=== PATIENT | male | born 1995 | race Native Hawaiian/Other Pacific Islander ===

== ENCOUNTER 2017-09-24 00:27 | Emergency (ER) | payer OTHER ==
--- NOTE | 2017-09-24 02:13 | ED PDOC ---
HPI: Psych/Substance Abuse Time Seen by Provider: 09/24/17 00:42 Chief Complaint (Nursing): Psychiatric Evaluation Chief Complaint (Provider): hearing voices Additional Complaint(s): 22yo M in ER with friend with auditory hallucinations and thoughts of SI- according to pt-he is very concerned about not being able to find a job post graduate school concerned about what his father in [place] may think. According to friend. pt has been saying odd things to all around him stating that Russians , etc are running after him-exhibiting signs of paranoia. faired states that pt parents are aware and have purchased a ticket for his return to [facility] for Monday. Pt without hx of mental health illness. no drug hx other than majuriina. Past Medical History Reviewed: Historical Data, Nursing Documentation, Vital Signs Vital Signs: Last Vital Signs Temp 98.2 F 09/24/17 00:47 Pulse 88 09/24/17 00:47 Resp 18 09/24/17 00:47 BP 139/79 09/24/17 00:47 Pulse Ox 98 09/24/17 00:47 - Medical History PMH: No Chronic Diseases - Family History Family History: States: No Known Family Hx - Allergies Allergies/Adverse Reactions: Allergies Allergy/AdvReac Type Severity Reaction Status Date / Time No Known Allergies Allergy Verified 09/24/17 00:56 Review of Systems ROS Statement: Except As Marked, All Systems Reviewed And Found Negative Psych: Positive for: Psychosis Physical Exam - Reviewed Nursing Documentation Reviewed: Yes Vital Signs Reviewed: Yes - Physical Exam Appears: Positive for: Well, Non-toxic, No Acute Distress Head Exam: Positive for: ATRAUMATIC, NORMAL INSPECTION, NORMOCEPHALIC Skin: Positive for: Normal Color, Warm, DRY Eye Exam: Positive for: EOMI, Normal appearance, PERRL ENT: Positive for: Normal ENT Inspection Cardiovascular/Chest: Positive for: Regular Rate, Rhythm Respiratory: Positive for: CNT, Normal Breath Sounds Neurologic/Psych: Positive for: Alert, insurance claims processor II-XII (intact), Oriented, Cerebellar Tests (intact), Gait (stable). Negative for: Motor/Sensory Deficits - Laboratory Results Result Diagrams: 09/24/17 02:10 09/24/17 02:10 - ECG O2 Sat by Pulse Oximetry: 98 - Progress ED Course And Treament: due to new onsent presentation will CT head. Orders Category Date Time Status HEAD W/O CONTRAST [CT] Stat CT 09/24/17 02:05 Ordered ALCOHOL SERUM Stat Chem 09/24/17 02:04 Ordered COMP METABOLIC PANEL Stat Chem 09/24/17 02:04 Ordered DRUG SCREEN, URINE Stat Chem 09/24/17 02:04 Ordered Crisis Evaluation As Ordered Cons 09/24/17 01:54 Ordered CHEST TWO VIEWS (PA/LAT) [RAD] Stat Exams 09/24/17 01:54 Ordered CBC (WITH DIFFERENTIAL) Stat FRANCIS 09/24/17 02:04 Ordered URINALYSIS Stat URINALYSIS 09/24/17 02:04 Ordered Medical Decision Making Medical Decision Making: ct head: FINDINGS: Brain: Unremarkable. No hemorrhage. No significant white matter disease. No edema. Ventricles: Unremarkable. No ventriculomegaly. Bones/joints: Unremarkable. No acute fracture. Soft tissues: Unremarkable. Sinuses: There is mucosal thickening in the frontal sinus. Mastoid air cells: Unremarkable as visualized. No mastoid effusion. IMPRESSION: No acute intracranial pathology. Thank you for allowing us to participate in the care of your patient. Dictated and Authenticated by: Arsen Romero MD 09/24/2017 2:53 AM Eastern Time ([place] & [place]) Pt will be admitted for psychosis under MD Rossy Disposition - Clinical Impression Clinical Impression: Psychosis - Patient ED Disposition Is Patient to be Admitted: Yes - Disposition Disposition Time: 03:00 Condition: STABLE - Pt Status Changed To: Hospital Disposition Of: Inpatient - Admit Certification Admit to Inpatient:: After my assessment, the patient will require hospitalization for at least two midnights. This is because of the severity of symptoms shown, intensity of services needed, and/or the medical risk in this patient being treated as an outpatient.
[2017-09-24 02:20] LABS: BASO % 0.1 % (0.0-2.0); EOS # 0.1 K/uL (0.0-0.7); EOS % 1.1 % (0.0-4.0); HEMATOCRIT 46.9 % (35.0-51.0); LYMPH # 2.4 K/uL (1.0-4.3); LYMPH % 34.3 % (20.0-40.0); MEAN CELL VOLUME 88.8 fl (80.0-94.0); MEAN CORPUSCULAR HEMOGLOBIN 29.8 pg (27.0-31.0); MEAN CORPUSCULAR HGB CONC 33.5 g/dL (33.0-37.0); MEAN PLATELET VOLUME 9.3 fl (7.2-11.7); MONO # 0.8 K/uL (0.0-0.8); MONO % 11.1 % (0.0-10.0); NEUT # 3.7 K/uL (1.8-7.0); NEUT % 53.4 % (50.0-75.0); NRBC % 0.1 % (0.0-0.0); RED CELL DISTRIBUTION WIDTH 13.6 % (11.5-14.5); WHITE BLOOD COUNT 6.9 K/uL (4.8-10.8)
[2017-09-24 02:29] LABS: RBC URINE 5 /hpf (0-3); URINE BACTERIA OCC (<OCC); URINE BILIRUBIN NEGATIVE (NEGATIVE); URINE BLOOD NEGATIVE (NEGATIVE); URINE CALCIUM OXALATE CRYSTALS OCC /hpf (<OCC); URINE COLOR YELLOW (YELLOW); URINE GLUCOSE (UA) NEG (Normal); URINE KETONE NEGATIVE (NEGATIVE); URINE LEUKOCYTE ESTERASE NEG Leu/uL (Negative); URINE PROTEIN 30 mg/dL (NEGATIVE); URINE UROBILINOGEN 0.2-1.0 mg/dL (0.2-1.0); WBC URINE 2 /hpf (0-5)
[2017-09-24 02:30] LABS: ALB/GLOB RATIO 1.7 (1.0-2.1); ALCOHOL SERUM < 10 mg/dl (0-10); ALKALINE PHOSPHATASE 75 U/L (38-126); ALT/SGPT 36 U/L (21-72); AST/SGOT 23 U/L (17-59); BILIRUBIN,TOTAL 0.6 mg/dl (0.2-1.3); BLOOD UREA NITROGEN 15 mg/dl (9-20); CALCIUM 9.7 mg/dL (8.4-10.2); CARBON DIOXIDE 23 mmol/L (22-30); CHLORIDE 103 mmol/L (98-107); GFR AFRICAN-AMERICAN > 60; GLUCOSE,RANDOM 100 mg/dL (75-110); POTASSIUM 4.1 MMOL/L (3.6-5.0); SODIUM 138 mmol/l (132-148); TOTAL PROTEIN 7.8 G/DL (6.3-8.2)
--- NOTE | 2017-09-24 07:09 | ED PDOC ---
- Laboratory Results Result Diagrams: 09/24/17 02:10 09/24/17 02:10 - ECG O2 Sat by Pulse Oximetry: 98 Medical Decision Making Medical Decision Making: Time: 06:00 --Patient signed over to me by Mima Coffey PA-C Time: 07 Patient to be signed out to Dr. León pending Disposition - Clinical Impression Clinical Impression: Psychosis - Disposition Disposition: Transfer of Care Disposition Time: 07:00 Condition: STABLE Patient Signed Over To: Sevrando Solo
--- NOTE | 2017-09-24 07:10 | ED PDOC ---
- Laboratory Results Result Diagrams: 09/24/17 02:10 09/24/17 02:10 - ECG O2 Sat by Pulse Oximetry: 98 Medical Decision Making Medical Decision Making: Time: 07:00 --Transfer of care endorsed by me to Dr. León Disposition - Clinical Impression Clinical Impression: Psychosis - Disposition Disposition: Transfer of Care Condition: STABLE Patient Signed Over To: Trisha León
--- NOTE | 2017-09-24 07:27 | ED PDOC ---
- Laboratory Results Result Diagrams: 09/24/17 02:10 09/24/17 02:10 - ECG O2 Sat by Pulse Oximetry: 98 (RA) Pulse Ox Interpretation: Normal Medical Decision Making Medical Decision Making: Receiving sign out: Patient signed out to me by Mima Coffey PA-C at 0600 pending [facility] [place]. Scribe Attestation: Documented by Latonya Hastings acting as a scribe for Servando Solo MD. Provider Attestation: All medical record entries made by the Scribe were at my direction and personally dictated by me. I have reviewed the chart and agree that the record accurately reflects my personal performance of the history, physical exam, medical decision making, and the department course for this patient. I have also personally directed, reviewed, and agree with the discharge instructions and disposition. Disposition - Clinical Impression Clinical Impression: Psychosis - POA Present On Arrival: None - Disposition Disposition: Transfer of Care Disposition Time: 07:00 Condition: STABLE Patient Signed Over To: Trisha León Handoff Comments: [facility] [place] Progress Note - Review of Symptoms Events since last encounter: Time: 0700 Patient to be signed out to Dr. León pending [facility] [place]
--- NOTE | 2017-09-24 07:37 | ED PDOC ---
- Laboratory Results Result Diagrams: 09/24/17 02:10 09/24/17 02:10 - ECG O2 Sat by Pulse Oximetry: 98 (RA) Pulse Ox Interpretation: Normal Medical Decision Making Medical Decision Making: Receiving sign out: Patient signed out to me by Dr. Solo at 0700 pending [facility] screen. Scribe Attestation: Documented by Candelaria Mae acting as a scribe for Trisha León MD. Provider Attestation: All medical record entries made by the Scribe were at my direction and personally dictated by me. I have reviewed the chart and agree that the record accurately reflects my personal performance of the history, physical exam, medical decision making, and the department course for this patient. I have also personally directed, reviewed, and agree with the discharge instructions and disposition. 13.30 patient becoming agitated again. He has difficulty following directions and prompting to return to bed. he is pacing. Patient awaiting [facility] and Dr. Patiño for evaluation. Will medicate. Disposition Doctor Will See Patient In The: Hospital - Clinical Impression Clinical Impression: Psychosis - POA Present On Arrival: None - Disposition Disposition: Transfer of Care Disposition Time: 14:45 Condition: STABLE Patient Signed Over To: Mal Antony
--- NOTE | 2017-09-24 09:47 | CT ---
PROCEDURE: CT HEAD WITHOUT CONTRAST. HISTORY: new psyhosis COMPARISON: None available. TECHNIQUE: Axial computed tomography images were obtained through the head/brain without intravenous contrast. Radiation dose: Total exam DLP = mGy-cm. This CT exam was performed using one or more of the following dose reduction techniques: Automated exposure control, adjustment of the mA and/or kV according to patient size, and/or use of iterative reconstruction technique. FINDINGS: HEMORRHAGE: No intracranial hemorrhage. BRAIN: No mass effect or edema. No atrophy or chronic microvascular ischemic changes. VENTRICLES: Unremarkable. No hydrocephalus. CALVARIUM: Unremarkable. PARANASAL SINUSES: Unremarkable as visualized. No significant inflammatory changes. MASTOID AIR CELLS: Unremarkable as visualized. No inflammatory changes. OTHER FINDINGS: None. IMPRESSION: Normal CT of the Head.
--- NOTE | 2017-09-24 11:35 | RAD ---
HISTORY: medical exam COMPARISON: No prior. TECHNIQUE: Chest PA and lateral FINDINGS: LUNGS: No active pulmonary disease. PLEURA: No significant pleural effusion identified. No pneumothorax apparent. CARDIOVASCULAR: Normal. OSSEOUS STRUCTURES: No significant abnormalities. VISUALIZED UPPER ABDOMEN: Normal. OTHER FINDINGS: None. IMPRESSION: No active disease.
--- NOTE | 2017-09-24 15:35 | ED PDOC ---
- Laboratory Results Result Diagrams: 09/24/17 02:10 09/24/17 02:10 - ECG O2 Sat by Pulse Oximetry: 98 (RA) Pulse Ox Interpretation: Normal - Progress ED Course And Treament: 2333: Stable. Dr. Solo to take over care. [facility] accepted, pending bed. Medical Decision Making Medical Decision Making: Receiving sign out: Patient signed out to me by Dr. León at 1500 pending [facility] screen. Scribe Attestation: Documented by Candelaria Mae acting as a scribe for Mal Antony MD. Provider Attestation: All medical record entries made by the Scribe were at my direction and personally dictated by me. I have reviewed the chart and agree that the record accurately reflects my personal performance of the history, physical exam, medical decision making, and the department course for this patient. I have also personally directed, reviewed, and agree with the discharge instructions and disposition. Disposition - Clinical Impression Clinical Impression: Psychosis - POA Present On Arrival: None - Disposition Disposition: Transfer of Care Disposition Time: 23:36 Condition: STABLE Patient Signed Over To: Servando Solo Progress Note - Review of Symptoms Events since last encounter: Time: 1544 Due to risk of harm to self and staff, patient to be placed in 4-point restraints. Haldol 5mg IM ordered as well.
--- NOTE | 2017-09-24 16:47 | CP.PCM.CON ---
History of Present Illness - History of Present Illness History of Present Illness: This is a 22 [place] who has been brought to ER because pt has been increasingly depressed because he has not been able to get a job after graduation from [employer] and felt embarrassed that how his parents would feel and pt has been delusional and paranoid that russians are coming after him.pt is also hallucinating and has refused voluntary inpt psych admission.pt is maintained on 1;1 observation. Past Patient History - Past Social History Smoking Status: Light Smoker < 10 Cigarettes Daily - CARDIAC Hx Cardiac Disorders: No Hx Hypertension: No - PULMONARY Hx Tuberculosis: No - NEUROLOGICAL HX Cerebrovascular Accident: No Hx Seizures: No - HEMATOLOGICAL/ONCOLOGICAL Hx Cancer: No Hx Human Immunodeficiency Virus (HIV): No - GENITOURINARY/GYNECOLOGICAL Hx Sexually Transmitted Disorders: No - PSYCHIATRIC Hx Substance Use: Yes - SURGICAL HISTORY Hx Surgeries: Yes Hx Eye Surgery: Yes (Lasik) - ANESTHESIA Hx Anesthesia: Yes Hx Anesthesia Reactions: No Meds Allergies/Adverse Reactions: Allergies Allergy/AdvReac Type Severity Reaction Status Date / Time No Known Allergies Allergy Verified 09/24/17 00:56 Results - Vital Signs Recent Vital Signs: Last Vital Signs Temp 96 F L 09/24/17 16:00 Pulse 90 09/24/17 16:34 Resp 18 09/24/17 16:34 BP 110/73 09/24/17 16:34 Pulse Ox 97 09/24/17 16:34 - Labs Result Diagrams: 09/24/17 02:10 09/24/17 02:10 Labs: Laboratory Results - last 24 hr 09/24/17 09/24/17 09/24/17 02:10 02:10 02:10 WBC 6.9 RBC 5.29 Hgb 15.7 Hct 46.9 MCV 88.8 MCH 29.8 MCHC 33.5 RDW 13.6 Plt Count 199 MPV 9.3 Neut % (Auto) 53.4 Lymph % (Auto) 34.3 [place] % (Auto) 11.1 H Eos % (Auto) 1.1 Baso % (Auto) 0.1 Neut # 3.7 Lymph # 2.4 [place] # 0.8 Eos # 0.1 Baso # 0.0 Sodium 138 Potassium 4.1 Chloride 103 Carbon Dioxide 23 Anion Gap 16 BUN 15 Creatinine 0.9 Est GFR ( Amer) > 60 Est GFR (Non-Af Amer) > 60 Random Glucose 100 Calcium 9.7 Total Bilirubin 0.6 AST 23 ALT 36 Alkaline Phosphatase 75 Total Protein 7.8 Albumin 4.9 Globulin 2.9 Albumin/Globulin Ratio 1.7 Urine Color Urine Clarity Urine pH Ur Specific Wiley Urine Protein Urine Glucose (UA) Urine Ketones Urine Blood Urine Nitrate Urine Bilirubin Urine Urobilinogen Ur Leukocyte Esterase Urine RBC (Auto) Urine Microscopic WBC Ur Squamous Epith Cells Calcium Oxalate Crystal Urine Bacteria Urine Opiates Screen Negative Urine Methadone Screen Negative Ur Barbiturates Screen Negative Ur Phencyclidine Scrn Negative Ur Amphetamines Screen Negative U Benzodiazepines Scrn Negative U Oth Cocaine Metabols Negative U Cannabinoids Screen Positive H Alcohol, Quantitative < 10 09/24/17 02:10 WBC RBC Hgb Hct MCV MCH MCHC RDW Plt Count MPV Neut % (Auto) Lymph % (Auto) [place] % (Auto) Eos % (Auto) Baso % (Auto) Neut # Lymph # [place] # Eos # Baso # Sodium Potassium Chloride Carbon Dioxide Anion Gap BUN Creatinine Est GFR ( Amer) Est GFR (Non-Af Amer) Random Glucose Calcium Total Bilirubin AST ALT Alkaline Phosphatase Total Protein Albumin Globulin Albumin/Globulin Ratio Urine Color Yellow Urine Clarity Cloudy Urine pH 5.0 Ur Specific Wiley 1.031 H Urine Protein 30 Urine Glucose (UA) Neg Urine Ketones Negative Urine Blood Negative Urine Nitrate Negative Urine Bilirubin Negative Urine Urobilinogen 0.2-1.0 Ur Leukocyte Esterase Neg Urine RBC (Auto) 5 H Urine Microscopic WBC 2 Ur Squamous Epith Cells 1 Calcium Oxalate Crystal Occ H Urine Bacteria Occ H Urine Opiates Screen Urine Methadone Screen Ur Barbiturates Screen Ur Phencyclidine Scrn Ur Amphetamines Screen U Benzodiazepines Scrn U Oth Cocaine Metabols U Cannabinoids Screen Alcohol, Quantitative
--- NOTE | 2017-09-25 06:31 | ED PDOC ---
- Laboratory Results Result Diagrams: 09/24/17 02:10 09/24/17 02:10 - ECG O2 Sat by Pulse Oximetry: 98 (RA) Medical Decision Making Medical Decision Makin Patient signed out to me from Dr. Antony pending [facility] bed availability. 0700 Patient will be signed out to Dr. Castillo from me pending [facility] bed availability. PT stable, asking to use cell phone to call juan ramon. Scribe Attestation: Documented by Katy Swan acting as a scribe for Servando Solo MD. Scribe Attestation: All medical record entries made by the Scribe were at my direction and personally dictated by me. I have reviewed the chart and agree that the record accurately reflects my personal performance of the history, physical exam, medical decision making, and the department course for this patient. I have also personally directed, reviewed, and agree with the discharge instructions and disposition. Disposition - Clinical Impression Clinical Impression: Psychosis - POA Present On Arrival: None - Disposition Disposition: Transfer of Care Disposition Time: 07:00 Condition: STABLE Patient Signed Over To: Inna Castillo Handoff Comments: pending [facility] bed availability
--- NOTE | 2017-09-25 07:24 | ED PDOC ---
- Laboratory Results Result Diagrams: 09/24/17 02:10 09/24/17 02:10 - ECG O2 Sat by Pulse Oximetry: 98 (RA) Medical Decision Making Medical Decision Makin -Patient transferred to [place] by Dr. Solo, pending transfer to [facility]. Disposition - Clinical Impression Clinical Impression: Psychosis - Disposition Condition: STABLE
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
--- NOTE | 2017-09-25 21:44 | ED PDOC ---
- Laboratory Results Result Diagrams: 09/24/17 02:10 09/24/17 02:10 - ECG O2 Sat by Pulse Oximetry: 100 Disposition - Clinical Impression Clinical Impression: Psychosis - POA Present On Arrival: None - Disposition Disposition: Transfer of Care Disposition Time: 00:00 Condition: STABLE Forms: [employer] ([place]) Patient Signed Over To: Shannon Reilly
[2017-09-25 22:46] VITALS: RESP 18
--- NOTE | 2017-09-26 00:36 | CARD ---
APPROVED REPORT EKG Measurement Heart [id number] <Conclusion> Normal sinus rhythm with sinus arrhythmia Normal ECG
--- NOTE | 2017-09-26 01:03 | ED PDOC ---
- Laboratory Results Result Diagrams: 09/24/17 02:10 09/24/17 02:10 - ECG O2 Sat by Pulse Oximetry: 100 (RA) Pulse Ox Interpretation: Normal Medical Decision Making Medical Decision Making: --12:00 Patient signed out to me by Dr. Calzada pending [facility] clearance. Reassess --1:04 FINDINGS: Chest X-ray LUNGS: No active pulmonary disease. PLEURA: No significant pleural effusion identified. No pneumothorax apparent. CARDIOVASCULAR: Normal. OSSEOUS STRUCTURES: No significant abnormalities. VISUALIZED UPPER ABDOMEN: Normal. OTHER FINDINGS: None. IMPRESSION: No active disease. --2:05 FINDINGS: CT HEAD WITHOUT CONTRAST HEMORRHAGE: No intracranial hemorrhage. BRAIN: No mass effect or edema. No atrophy or chronic microvascular ischemic changes. VENTRICLES: Unremarkable. No hydrocephalus. CALVARIUM: Unremarkable. PARANASAL SINUSES: Unremarkable as visualized. No significant inflammatory changes. MASTOID AIR CELLS: Unremarkable as visualized. No inflammatory changes. OTHER FINDINGS: None. IMPRESSION: Normal CT of the Head. --07:00 Patient to be signed out to Dr. Shaver pending [facility] [place]. Scribe Attestation: Documented by Eric Lorenzo acting as a scribe for Shannon Reilly MD. Provider Attestation: All medical record entries made by the Scribe were at my direction and personally dictated by me. I have reviewed the chart and agree that the record accurately reflects my personal performance of the history, physical exam, medical decision making, and the department course for this patient. I have also personally directed, reviewed, and agree with the discharge instructions and disposition. Disposition Discussed With : Emanuel Shaver Doctor Will See Patient In The: ED - Clinical Impression Clinical Impression: Psychosis - POA Present On Arrival: None - Disposition Disposition: Transfer of Care Disposition Time: 07:00 Condition: FAIR Forms: [employer] ([employer]) Patient Signed Over To: Emanuel Shaver
[2017-09-26 02:35] VITALS: TEMP 98.3
[2017-09-26 04:12] VITALS: O2SAT 100
--- NOTE | 2017-09-26 08:00 | ED PDOC ---
- Laboratory Results Result Diagrams: 09/24/17 02:10 09/24/17 02:10 - ECG O2 Sat by Pulse Oximetry: 100 (RA) Medical Decision Making Medical Decision Making: Patient was signed out to me by Dr. Reilly at 7:00AM, pending [facility] [place]. Scribe Attestation: Documented by Donaldo Peoples, acting as a scribe for Emanuel Shaver MD Provider Scribe Attestation: All medical record entries made by the Scribe were at my direction and personally dictated by me. I have reviewed the chart and agree that the record accurately reflects my personal performance of the history, physical exam, medical decision making, and the department course for this patient. I have also personally directed, reviewed, and agree with the discharge instructions and disposition. Disposition Counseled Patient/Family Regarding: Studies Performed, Diagnosis - Clinical Impression Clinical Impression: Psychosis - POA Present On Arrival: None - Disposition Disposition: Other Institution ([facility] Disposition Time: 10:00 Condition: STABLE
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
[2017-09-26 12:25] VITALS: BP 109/60; PULSE 88
== END 2017-09-26 12:12 | disposition short-term general hospital (02) ==
LOC: H.ER 00:27 → UNDOADMIN 02:57 → H.ERHOLD 02:57 → H.ER 09-26 12:12
DX: F29 Unspecified psychosis not due to a substance or known physiological condition (principal); F17.210 Nicotine dependence, cigarettes, uncomplicated; F12.90 Cannabis use, unspecified, uncomplicated
CPT/HCPCS: 70450; 71020; 80053; 80320; 80324; 80345; 80346; 80349; 80353; 80358; 80361; 81003; 83992; 85025; 93005; 96372; 99285; J1630; J2060